=== PATIENT | male | born 1945 | race Caucasian/White ===

== ENCOUNTER 2016-09-01 03:03 | Emergency (ER) | payer MEDICARE, OTHER ==
[2016-09-01] MEDS ORDERED: ASPIRIN 81 MG TABLET, CHEWABLE PO ONE (03:14)
--- NOTE | 2016-09-01 04:03 | ER Document Report ---
ED General - General Chief Complaint: Chest Pain Stated Complaint: CHEST PAIN Notes: Patient is a 70-year-old male presents with complaint of pain in his abdomen and radiates to the back. Patient says he was sleeping when it started. He says it radiated up to his diaphragm. It does not go into his upper chest. No difficulty breathing. He has previous history of MIs. He says the pain was not similar to what he had in the past with his MIs. He has 7 stents. Last cardiac catheter stress test was in 2010. He had 2 stents placed at that time. No fevers. No infections. 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 He does have a history of "twisting" of the sigmoid colon. He says whenever he has pain with this he comes is a quick sharp pain. He says the pain today is similar to that. He was given 4 baby aspirin. He says he has been have resolved his pain. He has not received any nitroglycerin. TRAVEL OUTSIDE OF THE [place] IN LAST 30 DAYS: No - Related Data Allergies/Adverse Reactions: No Known Allergies Allergy (Verified 01/17/15 10:26) Past Medical History - Social History Smoking Status: Former Smoker Chew tobacco use (# tins/day): No Frequency of alcohol use: None Drug Abuse: None Family History: None Patient has suicidal ideation: No Patient has homicidal ideation: No - Past Medical History Cardiac Medical History: Reports: Hx Heart Attack, Hx Hypercholesterolemia Endocrine Medical History: Reports: Hx Diabetes Mellitus Type 2 - diabetic neuropathy Renal/ Medical History: Denies: Hx Peritoneal Dialysis GI Medical History: Reports: Hx Gastroesophageal Reflux Disease Traumatic Medical History: Reports: Hx Fractures - left fibula Past Surgical History: Reports: Hx Cardiac Catheterization, Hx Cardiac Surgery, Hx Orthopedic Surgery, Hx Vascular Surgery - Immunizations Hx Diphtheria, Pertussis, Tetanus Vaccination: No Review of Systems - Review of Systems Notes: My Normal Review Basic REVIEW OF SYSTEMS: CONSTITUTIONAL : Denies fever, chills, or sweats. Denies recent illness. EENT: Denies eye, ear, throat, or mouth pain or symptoms. Denies nasal or sinus congestion. CARDIOVASCULAR: Lower chest pain radiating from abdomen RESPIRATORY: Denies cough, cold, or chest congestion. Denies shortness of breath, difficulty breathing, or wheezing. GASTROINTESTINAL: Some abdominal pain. Denies nausea, vomiting, or diarrhea. Denies constipation. Last BM: GENITOURINARY: Denies difficulty urinating, painful urination, burning, frequency, or blood in urine. FEMALE GENITOURINARY: Denies vaginal bleeding, abnormal or irregular periods. LMP: MUSCULOSKELETAL: Some back pain associated with abdominal pain SKIN: Denies rash or skin lesions. NEUROLOGICAL: Denies altered mental status or loss of consciousness. Denies headache. Denies weakness or paralysis or loss of use of either side. Denies problems with gait or speech. Denies sensory or motor loss. ALL OTHER SYSTEMS REVIEWED AND NEGATIVE. Physical Exam - Vital signs Vitals: Pulse Ox 99 09/01/16 04:00 - Notes Notes: General Appearance: Well nourished, alert, cooperative, no acute distress, no obvious discomfort. Well-appearing. Vitals: reviewed, See vital signs table. Head: no swelling or tenderness to the head Eyes: PERRL, EOMI, Conjuctiva clear Mouth: No decreasd moisture Neck: Supple, no neck tenderness, No thyromegaly Lungs: No wheezing, No rales, No rhonci, No accessory muscle use, good air exchange bilaterally. Heart: Normal rate, Regular rythm, No murmur, no rub Abdomen: Normal BS, soft, No rigidity, No reproducible abdominal tenderness to palpation, No guarding, no rebound, no abdominal masses, no organomegaly Extremities: strength 5/5 in all extremities, good pulses in all extremities, no swelling or tenderness in the extremities, no edema. Skin: warm, dry, appropriate color, no rash Neuro: speech clear, oriented x 3, normal affect, responds appropriately to questions. Course - Re-evaluation Re-evalutation: 09/01/16 06:12 Patient continues feel improved. He says only pain he has is very mild pain in his left lower quadrant of his abdomen. He has no chest pain. No difficulty breathing. Most pain that was his abdomen is gone. Otherwise feels well. I did obtain a CT angiogram of the chest abdomen pelvis being the pain started out as pain in his abdomen radiating to his back. Results are pending. - Vital Signs Vital signs: Temp Pulse Resp BP Pulse Ox 12 136/74 H 96 09/01/16 07:01 09/01/16 07:01 09/01/16 07:01 - Laboratory Result Diagrams: 09/01/16 03:49 09/01/16 03:49 Laboratory results interpreted by me: 09/01/16 09/01/16 03:49 03:49 Plt Count 134 L Eosinophils % 7.1 H Sodium 145.5 H Potassium 5.2 H Glucose 144 H Calcium 11.1 H - EKG Interpretation by Me Additional EKG results interpreted by me: 09/01/16 04:02 EKG is reviewed and interpreted by me. EKG shows sinus bradycardia with rate of [address] segment elevation or depression. No ischemic T wave inversions. [place] interval, QRS duration, QTC intervals are within normal range. Old EKG for comparison is from 04/16/2011. Discharge - Discharge Clinical Impression: Abdominal pain Qualifiers: Abdominal location: unspecified location Qualified Code(s): R10.9 - Unspecified abdominal pain Condition: Good Disposition: HOME, SELF-CARE Additional Instructions: You do have some gallstones on your CT scan. There is no evidence of infection of your gallbladder on your blood work or on your scan. Your cardiac enzymes are negative. I think it's unlikely your heart caused the pain being the pain was mostly in the abdomen and back and being that the pain was nothing like what you had in the past with your previous heart attacks. Your EKG was normal. Despite all this, please have a low threshold to return to the ER if you have recurrent pains, any vomiting, or any fevers. Please follow closely with your doctor for reevaluation. Referrals: TONA FERGUSON MD [Primary Care Provider] - 09/02/16
[2016-09-01 04:07] LABS: ABSOLUTE BASOPHILS # (AUTO) 0.1 10^3/uL (0.0-0.2); ABSOLUTE EOSINOPHILS # (AUTO) 0.6 10^3/uL (0.0-0.6); ABSOLUTE LYMPHOCYTES (AUTO) 2.6 10^3/uL (0.5-4.7); ABSOLUTE MONOCYTES (AUTO) 0.6 10^3/uL (0.1-1.4); ABSOLUTE NEUT (AUTO) 3.9 10^3/uL (1.7-8.2); BASOPHILS % (AUTO) 0.7 % (0-2); EOSINOPHILS % (AUTO) 7.1 % (0-6); HEMATOCRIT 45.2 % (37.9-51.0); HEMOGLOBIN 15.3 g/dL (13.5-17.0); HGB HCT DIFFERENCE 0.7; MEAN CORPUSCULAR HEMOGLOBIN 29.3 pg (27.0-33.4); MEAN CORPUSCULAR HGB CONC 33.8 g/dL (32.0-36.0); MEAN CORPUSCULAR VOLUME 87 fl (80-97); RED BLOOD COUNT 5.21 10^6/uL (4.35-5.55); RED CELL DISTRIBUTION WIDTH 13.9 % (11.5-14.0); SEGMENTED NEUTROPHILS % (AUTO) 50.2 % (42-78); WHITE BLOOD COUNT 7.7 10^3/uL (4.0-10.5)
[2016-09-01 04:19] LABS: ALANINE AMINOTRANSFERASE 44 U/L (21-72); ALBUMIN 4.8 g/dL (3.5-5.0); ALKALINE PHOSPHATASE 113 U/L (38-126); ANION GAP 12 (5-19); ASPARTATE AMINO TRANSFERASE 32 U/L (17-59); BILIRUBIN,TOTAL 0.6 mg/dL (0.2-1.3); BLOOD UREA NITROGEN 16 mg/dL (7-20); CALCIUM 11.1 mg/dL (8.4-10.2); CARBON DIOXIDE 30 mmol/L (22-30); CHLORIDE 104 mmol/L (98-107); CREATINE KINASE 158 U/L (55-170); CREATININE RESULT 1.18 mg/dL (0.52-1.25); GLUCOSE 144 mg/dL (75-110); POTASSIUM 5.2 mmol/L (3.6-5.0); SODIUM 145.5 mmol/L (137-145); TOTAL PROTEIN 7.3 g/dL (6.3-8.2)
[2016-09-01 04:24] LABS: PROTHROMBIN TIME 13.2 SEC (11.4-15.4)
[2016-09-01 04:37] LABS: CREATINE KINASE MB 1.52 ng/mL (<4.55); TROPONIN I 0.021 ng/mL
[2016-09-01] MEDS ORDERED: NORMAL SALINE 1000 ML 1,000 ML IV ONE (05:12)
[2016-09-01 06:43] LABS: APPEARANCE,URINE SLIGHTLY-CLOUDY; BILIRUBIN,URINE NEGATIVE (NEGATIVE); GLUCOSE, URINE NEGATIVE (NEGATIVE); KETONES,URINE NEGATIVE (NEGATIVE); LEUKOCYTE ESTERASE,URINE NEGATIVE (NEGATIVE); NITRITE,URINE NEGATIVE (NEGATIVE); PROTEIN,URINE NEGATIVE (NEGATIVE); URINE SPECIFIC GRAVITY 1.048; UROBILINOGEN,URINE NEGATIVE mg/dL (<2.0)
--- NOTE | 2016-09-01 08:11 | EKG REPORT ---
SEVERITY:- NORMAL ECG - SINUS RHYTHM : Confirmed by: Ese Chavez MD 01-Sep-2016 08:11:24
[2016-09-01 08:25] VITALS: BP 142/78
== END 2016-09-01 08:32 | disposition home or self-care (01) ==
LOC: ER 03:03
DX: R10.32 Left lower quadrant pain (principal); R07.1 Chest pain on breathing; R00.1 Bradycardia, unspecified; I25.2 Old myocardial infarction; M54.9 Dorsalgia, unspecified; E11.40 Type 2 diabetes mellitus with diabetic neuropathy, unspecified; Z98.61 Coronary angioplasty status; Z87.19 Personal history of other diseases of the digestive system; Z87.891 Personal history of nicotine dependence
CPT/HCPCS: 93005; 99285; 96360; 36415; 82553; 82550; 85025; 85610; 80053; 81001; 84484; 71010; 71275; 74177; 93010; A9270; J7030

== ENCOUNTER 2019-09-26 10:53 | Emergency (ER) | payer MEDICARE, OTHER ==
[2019-09-26] MEDS ORDERED: ASPIRIN 81 MG TABLET, CHEWABLE PO ONE (11:14)
--- NOTE | 2019-09-26 11:17 | ER Document Report ---
ED Medical Screen (RME) - General Chief Complaint: Chest Pain Stated Complaint: CHEST PAIN Time Seen by Provider: 09/26/19 11:05 Primary Care Provider: YOUSUF FERGUSON MD [Primary Care Provider] - Follow up as needed TRAVEL OUTSIDE OF THE [place] IN LAST 30 DAYS: No - HPI Notes: 09/26/19 11:12 73-year-old male with a history of several MIs and 7 stents placed presents emergency room with complaints of chest pain that substernal and radiates to his bilateral jaw that lasted about 10 minutes with exertion, he experienced this about 40 minutes ago. He is also reporting a headache. Denies any chest pain at rest. states he is had several episodes of the last few weeks but he was too "stubborn to come in to get it checked out". Patient is due to have a stress test done in October, last stress test was in 2009. Patient is on Plavix for his stents. Patient does take a baby aspirin, and did take it this morning. Denies any shortness of breath, nausea vomiting diarrhea, denies fevers and chills. No recent falls or traumas. 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 I have greeted and performed a rapid initial assessment of this patient. A comprehensive ED assessment and evaluation of the patient, analysis of test results and completion of medical decision making process will be conducted by an additional ED providers. PHYSICAL EXAMINATION: NECK: Normal range of motion CV: s1, s2 regular LUNGS: No respiratory distress 09/26/19 11:16 - Related Data Allergies/Adverse Reactions: metformin Allergy (Verified 09/26/19 11:14) Past Medical History - Past Medical History Cardiac Medical History: Reports: Hx Heart Attack, Hx Hypercholesterolemia Endocrine Medical History: Reports: Hx Diabetes Mellitus Type 2 - diabetic neuropathy Renal/ Medical History: Denies: Hx Peritoneal Dialysis GI Medical History: Reports: Hx Gastroesophageal Reflux Disease Traumatic Medical History: Reports: Hx Fractures - left fibula Past Surgical History: Reports: Hx Cardiac Catheterization - stents and bipass, Hx Cardiac Surgery, Hx Orthopedic Surgery, Hx Vascular Surgery - Immunizations Hx Diphtheria, Pertussis, Tetanus Vaccination: No Doctor's Discharge - Discharge Referrals: YOUSUF FERGUSON MD [Primary Care Provider] - Follow up as needed
[2019-09-26 11:59] LABS: ABSOLUTE EOSINOPHILS # (AUTO) 0.5 10^3/uL (0.0-0.6); ABSOLUTE LYMPHOCYTES (AUTO) 1.8 10^3/uL (0.5-4.7); ABSOLUTE MONOCYTES (AUTO) 0.5 10^3/uL (0.1-1.4); ABSOLUTE NEUT (AUTO) 3.5 10^3/uL (1.7-8.2); BASOPHILS % (AUTO) 0.5 % (0-2); EOSINOPHILS % (AUTO) 7.4 % (0-6); HEMOGLOBIN 15.5 g/dL (13.5-17.0); LYMPHOCYTES % (AUTO) 28.1 % (13-45); MEAN CORPUSCULAR HGB CONC 33.7 g/dL (32.0-36.0); MEAN CORPUSCULAR VOLUME 83 fl (80-97); MONOCYTES % (AUTO) 8.2 % (3-13); PLATELET COUNT 141 10^3/uL (150-450); RED BLOOD COUNT 5.53 10^6/uL (4.35-5.55); RED CELL DISTRIBUTION WIDTH 15.1 % (11.5-14.0); SEGMENTED NEUTROPHILS % (AUTO) 55.8 % (42-78); TOTAL CELLS COUNTED % (AUTO) 100 %; WHITE BLOOD COUNT 6.3 10^3/uL (4.0-10.5)
[2019-09-26 12:08] LABS: INTERNATIONAL RATION (INR) 1.06; PROTHROMBIN TIME 13.8 SEC (11.4-15.4)
--- NOTE | 2019-09-26 12:18 | RADIOLOGY REPORT (SQ) ---
EXAM DESCRIPTION: CHEST SINGLE VIEW COMPLETED DATE/TIME: 09/26/2019 12:06 pm REASON FOR STUDY: CP COMPARISON: None. EXAM PARAMETERS: NUMBER OF VIEWS: One view. TECHNIQUE: Single frontal radiographic view of the chest acquired. RADIATION DOSE: NA LIMITATIONS: None. FINDINGS: LUNGS AND PLEURA: No opacities, masses or pneumothorax. No pleural effusion. MEDIASTINUM AND HILAR STRUCTURES: No masses. Contour normal. HEART AND VASCULAR STRUCTURES: Heart normal in size. Normal vasculature. BONES: No acute findings. HARDWARE: None in the chest. OTHER: No other significant finding. IMPRESSION: NO ACUTE RADIOGRAPHIC FINDING IN THE CHEST. TECHNICAL DOCUMENTATION: JOB ID: [id number] 2010 [employer]- All Rights Reserved Reading location - IP/workstation name: [email or web address]
[2019-09-26 12:25] LABS: ALBUMIN 4.3 g/dL (3.5-5.0); ALKALINE PHOSPHATASE 102 U/L (38-126); ANION GAP 9 (5-19); ASPARTATE AMINO TRANSFERASE 31 U/L (17-59); BILIRUBIN,TOTAL 0.5 mg/dL (0.2-1.3); BLOOD UREA NITROGEN 18 mg/dL (7-20); CALCIUM 9.1 mg/dL (8.4-10.2); CARBON DIOXIDE 28 mmol/L (22-30); CHLORIDE 101 mmol/L (98-107); CREATINE KINASE 105 U/L (55-170); GLUCOSE 203 mg/dL (75-110); POTASSIUM 4.3 mmol/L (3.6-5.0); TOTAL PROTEIN 6.8 g/dL (6.3-8.2)
[2019-09-26 12:35] LABS: CREATINE KINASE MB 1.88 ng/mL (<4.55)
[2019-09-26 12:36] LABS: TROPONIN I < 0.012 ng/mL
--- NOTE | 2019-09-26 13:44 | ER Document Report ---
Entered by ROC SOMMERS SCRIBE 09/26/19 [id number] Acting as scribe for:MAYELA DE LEON MD ED Cardiac - General Chief Complaint: Chest Pain Stated Complaint: CHEST PAIN Time Seen by Provider: 09/26/19 11:05 Primary Care Provider: YOUSUF FERGUSON MD [Primary Care Provider] - Follow up as needed Mode of Arrival: Ambulatory Information source: Patient Notes: This 73 year old male patient presents to the emergency department today with complaints of exertional chest pain. Patient states that he has had this discomfort for the last several weeks and he has noticed that less and less exertion brings on this pain. Patient states that this morning he pushed his lawnmower for 3 steps prior to his pain beginning. Patient states he has not ta yasmin any nitroglycerin when these symptoms begin because "I am hard headed". Patient states he lays down when the pain begins and the pain goes away after about 10-15 minutes. TRAVEL OUTSIDE OF THE [place] IN LAST 30 DAYS: No - Related Data Allergies/Adverse Reactions: metformin Allergy (Verified 09/26/19 11:14) Past Medical History - General Information source: Patient - Social History Smoking Status: Former Smoker Cigarette use (# per day): No Frequency of alcohol use: Occasional Drug Abuse: None Occupation: Retired Lives with: Family Family History: None Patient has suicidal ideation: No Patient has homicidal ideation: No - Past Medical History Cardiac Medical History: Reports: Hx Coronary Artery Disease, Hx Heart Attack, Hx Hypercholesterolemia Endocrine Medical History: Reports: Hx Diabetes Mellitus Type 2 - diabetic neuropathy GI Medical History: Reports: Hx Gastroesophageal Reflux Disease Traumatic Medical History: Reports: Hx Fractures - left fibula Past Surgical History: Reports: Hx Cardiac Catheterization - stents and bipass, Hx Cardiac Surgery, Hx Orthopedic Surgery, Hx Vascular Surgery - Immunizations Hx Diphtheria, Pertussis, Tetanus Vaccination: No Review of Systems - Review of Systems Constitutional: No symptoms reported EENT: No symptoms reported Cardiovascular: See HPI, Chest pain Respiratory: See HPI, Short of breath Gastrointestinal: No symptoms reported Genitourinary: No symptoms reported Male Genitourinary: No symptoms reported Musculoskeletal: No symptoms reported Skin: No symptoms reported Hematologic/Lymphatic: No symptoms reported Neurological/Psychological: No symptoms reported -: Yes All other systems reviewed and negative Physical Exam - Vital signs Vitals: Temp Pulse Resp BP Pulse Ox 97.9 F 52 L 20 147/71 H 98 09/26/19 11:14 09/26/19 11:14 09/26/19 11:14 09/26/19 11:14 09/26/19 11:14 - Notes Notes: Physical Exam: General: Alert, appears well. Essential tremor of the head/neck. HEENT: Normocephalic. Atraumatic. PERRL. Extraocular movements intact. Oropharynx clear. Neck: Supple. Non-tender. Respiratory: No respiratory distress. Clear and equal breath sounds bilaterally. Cardiovascular: Regular rate and rhythm. Abdominal: Normal Inspection. Non-tender. No distension. Normal Bowel Sounds. Back: No gross abnormalities. Extremities: Moves all four extremities. Upper extremities: Normal inspection. Normal ROM. Lower extremities: Normal inspection. No edema. Normal ROM. Neurological: Normal cognition. AAOx4. Normal speech. Essential tremor of the head/neck. Psychological: Normal affect. Normal Mood. Skin: Warm. Dry. Normal color. Course - Re-evaluation Re-evalutation: 09/26/19 16:36 Patient remains pain-free at rest. Transport is here to take him to [facility]. Patient is stable for transport at this time. - Vital Signs Vital signs: Temp Pulse Resp BP Pulse Ox 97.6 F 52 L 13 150/89 H 96 09/26/19 16:35 09/26/19 11:14 09/26/19 16:01 09/26/19 16:01 09/26/19 16:01 - Laboratory Result Diagrams: 09/26/19 11:39 09/26/19 11:39 Laboratory results interpreted by me: 09/26/19 09/26/19 11:39 11:39 RDW 15.1 H Plt Count 141 L Eos % (Auto) 7.4 H Glucose 203 H - Diagnostic Test Radiology reviewed: Image reviewed, Reports reviewed - Chest x-ray does not show any acute radiographic findings. - EKG Interpretation by [facility] EKG shows normal: Sinus rhythm, [place], Intervals, QRS Complexes, ST-T Waves Rate: Normal - 55 Rhythm: NSR - Consults Dr. Villalpando Time consulted: 15:05 Consulted provider: other - Will Accept at [facility] Discharge - Discharge Clinical Impression: Crescendo angina Condition: Good Disposition: [facility] Referrals: YOUSUF FERGUSON MD [Primary Care Provider] - Follow up as needed I personally performed the services described in the documentation, reviewed and edited the documentation which was dictated to the scribe in my presence, and it accurately records my words and actions.
[2019-09-26 16:07] VITALS: BP 150/89
--- NOTE | 2019-09-26 21:45 | EKG REPORT ---
SEVERITY:- NORMAL ECG - SINUS RHYTHM : Confirmed by: Ese Chavez MD 26-Sep-2019 21:44:32
== END 2019-09-26 16:34 | disposition short-term general hospital (02) ==
LOC: ER 10:53
DX: I25.110 Atherosclerotic heart disease of native coronary artery with unstable angina pectoris (principal); R06.02 Shortness of breath; G25.0 Essential tremor; I25.2 Old myocardial infarction; E11.40 Type 2 diabetes mellitus with diabetic neuropathy, unspecified; Z87.891 Personal history of nicotine dependence; Z88.8 Allergy status to other drugs, medicaments and biological substances
CPT/HCPCS: 93005; 99285; 36415; 82553; 82550; 85025; 85610; 80053; 84484; 71045; 93010; A9270